=== PATIENT | male | born 1980 | race African-American/Black ===

== ENCOUNTER 2022-04-12 09:12 | Emergency (ER) | payer OTHER ==
[~2022-04-12] VITALS: Ht 182.9 cm; Wt 90.7 kg
[2022-04-12] MEDS ORDERED: ACETAMINOPHEN 325 MG TABLET PO ONE (10:15)
[2022-04-12] MEDS ORDERED: KETOROLAC TROMETHAMINE 15 MG INJ IVP ONE (10:15)
[2022-04-12] MEDS ORDERED: METOCLOPRAMIDE HCL 10 MG/2 ML VIAL IV ONE (10:15)
[2022-04-12] MEDS ORDERED: IV NORMAL SALINE 500 ML BAG IV ONE (10:15)
[2022-04-12] MEDS ORDERED: MAGNESIUM SULFATE 2 GM in IV DEXTROSE 5% 100 ML IV ONE (10:15)
[2022-04-12 10:22] LABS: HEMATOCRIT 43.8 % (36.7-47.1); MEAN CORPUSCULAR HEMOGLOBIN 25.1 uug (23.8-33.4); MEAN CORPUSCULAR VOLUME 79.8 fL (73.0-96.2); PLATELET COUNT (AUTO) 347 K/uL (152-348)
[2022-04-12] MEDS ORDERED: KETOROLAC TROMETHAMINE 15 MG INJ ONE (10:26)
[2022-04-12] MEDS ORDERED: METOCLOPRAMIDE HCL 10 MG/2 ML VIAL ONE (10:26)
[2022-04-12] MEDS ORDERED: ACETAMINOPHEN 325 MG TABLET ONE (10:26)
[2022-04-12] MEDS ORDERED: MAGNESIUM SULFATE/D5W 100 ML ONE ×2 (10:27)
--- NOTE | 2022-04-12 11:20 | NUR ---
Pt resting in gurney with NAD noted, at bedside.
[2022-04-12 12:39] LABS: CREATININE 1.4 mg/dL (0.6-1.3); POTASSIUM 3.2 mmol/L (3.5-5.1)
[2022-04-12 12:46] LABS: BILIRUBIN,TOTAL 0.3 mg/dL (0.2-1.0); TOTAL PROTEIN, SERUM 9.2 g/dL (6.4-8.2)
--- NOTE | 2022-04-12 13:05 | NUR ---
IV removed. Catheter intact and site benign. Pressure and 4x4 gauze applied to site. No bleeding noted.
--- NOTE | 2022-04-12 13:07 | NUR ---
Patient discharged to home in stable condition. Written and verbal after care instructions given. Patient verbalizes understanding of instructions. Stressed follow up or return to ER for worsening s/s.
== END 2022-04-12 13:09 | disposition home or self-care (01) ==
LOC: ER 09:12
DX: R51.9 Headache, unspecified (principal); E87.6 Hypokalemia; Z86.19 Personal history of other infectious and parasitic diseases
CPT/HCPCS: 99285; 96365; 70450; 96375; 80053; 85025; 85610; 86900; 86901; 84484; 36415; J1885; J3475 ×3; J2765; J7040; A4663

== ENCOUNTER 2022-04-24 21:52 | Emergency (ER) | payer MEDICAID, OTHER ==
[~2022-04-24] VITALS: Ht 182.9 cm; Wt 90.7 kg
[2022-04-24] MEDS ORDERED: IV NS 1000 ML 1,000 ML IV ONE (22:45)
[2022-04-24 22:50] LABS: HEMATOCRIT 41.7 % (36.7-47.1); MEAN CORPUSCULAR HEMOGLOBIN 24.9 uug (23.8-33.4); MEAN CORPUSCULAR VOLUME 79.2 fL (73.0-96.2); PLATELET COUNT (AUTO) 350 K/uL (152-348)
[2022-04-24 23:11] LABS: CARBON DIOXIDE 27 mmol/L (21-32); CHLORIDE 97 mmol/L (98-107); CREATININE 1.3 mg/dL (0.6-1.3); GLUCOSE 128 mg/dL (74-106); POTASSIUM 3.6 mmol/L (3.5-5.1); UREA NITROGEN, BLOOD 12 mg/dL (7-18)
[2022-04-24 23:26] LABS: ALANINE AMINOTRANSFERASE 18 U/L (16-63); ALKALINE PHOSPHATASE 56 U/L (50-136); ASPARTATE AMINOTRANSFERASE 20 U/L (15-37); BILIRUBIN,DIRECT 0.1 mg/dL (0.0-0.2); BILIRUBIN,TOTAL 0.4 mg/dL (0.2-1.0); TOTAL PROTEIN, SERUM 8.8 g/dL (6.4-8.2)
--- NOTE | 2022-04-25 00:40 | NUR ---
Pt at bedside.
[2022-04-25] MEDS ORDERED: FLUC200T8 PO (01:20)
--- NOTE | 2022-04-25 01:35 | NUR ---
Patient discharged to home in stable condition. Written and verbal after care instructions given. Patient verbalizes understanding of instructions. Stressed follow up or return to ER for worsening s/s. Patient walked out with steady gait.
[2022-04-25 02:28] VITALS: BP 121/72
== END 2022-04-25 01:45 | disposition home or self-care (01) ==
LOC: ER 21:52
DX: B38.0 Acute pulmonary coccidioidomycosis (principal); R00.0 Tachycardia, unspecified; D75.839 Thrombocytosis, unspecified
CPT/HCPCS: 99285; 96360; 71045; 80076; 80048; 85025; 87040 ×2; 84484; 36415; 83605; 93005; J7040; A4663